=== PATIENT | female | born 1935 | race Caucasian/White ===

== ENCOUNTER 2022-08-31 08:45 | Outpatient (CLI) | payer MEDICARE, SELFPAY ==
--- NOTE | 2022-08-31 | EST_ITS ---
Patient Info Name: Stephanie Browning Age: 86 years : 1935 Gender: Female Ht: 65 in Wt: 175 lbs BSA: 1.93 m2 Exam Date: 08/31/2022 10:57 AM Exam Location: [facility] Stress Patient Status: Outpatient Admit Date: 08/31/2022 Staff Ordering Physician: Carson, Maggie Angulo MD Attending Provider: Carson, Maggie Angulo MD Exercise Technologist: Unique Garrison RDCS Exercise Physician: Lewis Waggoner DO Exam Type: CA stress mynor w NM Study Info Indications R06.09 - Other forms of dyspnea A regadenoson stress test was performed. Summary 1. 1. Negative lexiscan stress test for ischemic ST changes by ECG criteria. 2. 2. Stable hemodynamics throughout the test. 3. 3. Nuclear scan to follow and will be reported separately. Please correlate with it. 4. 4. Patient informed of the above results. Protocol: Lexiscan Stress ECG Details Stage: REST Duration (min): 0 min : 44 sec HR (bpm): 67 SBP (mmHg): 136 DBP (mmHg): 71 Stage: REST Duration (min): 10 min : 14 sec HR (bpm): 74 SBP (mmHg): 136 DBP (mmHg): 71 Stage: STAGE 1 Duration (min): 1 min : 0 sec HR (bpm): 72 SBP (mmHg): 134 DBP (mmHg): 77 Stage: RECOVERY Duration (min): 1 min : 0 sec HR (bpm): 93 SBP (mmHg): 134 DBP (mmHg): 77 Stage: RECOVERY Duration (min): 2 min : 0 sec HR (bpm): 94 SBP (mmHg): 140 DBP (mmHg): 74 Stage: RECOVERY Duration (min): 3 min : 0 sec HR (bpm): 90 SBP (mmHg): 140 DBP (mmHg): 70 Stage: RECOVERY Duration (min): 4 min : 0 sec HR (bpm): 88 SBP (mmHg): 140 DBP (mmHg): 70 Stage: RECOVERY Duration (min): 5 min : 0 sec HR (bpm): 88 SBP (mmHg): 142 DBP (mmHg): 69 Stage: RECOVERY Duration (min): 5 min : 5 sec HR (bpm): 88 SBP (mmHg): 142 DBP (mmHg): 69 Rest HR: 74 bpm Peak HR: 95 bpm Rest Sys BP: 136 mmHg Peak Sys BP: 142 mmHg Max Pred HR: 135 bpm % Max Pred HR: 70 % Target HR: 115 bpm Max RPP: 13,490 bpm*mmHg Termination Reason: Completed protocol Cardiac Symptoms: Shortness of breath Total Time: 1 min : 0 sec Rest Dinh BP: 71 mmHg Peak Dinh BP: 69 mmHg Total Dose: 0.4 mg Resting ECG Sinus rhythm. Stress ECG No ST changes. Arrhythmias None. Report Signatures
--- NOTE | 2022-08-31 | ECHO_ITS ---
Patient Info Name: Stephanie Browning Age: 86 years : 1935 Gender: Female Ht: 66 in Wt: 175 lbs BSA: 1.94 m2 HR: 78 bpm BP: 140 / 95 mmHg Technical Quality: Good Exam Date: 08/31/2022 9:37 AM Exam Location: [facility] Patient Status: Outpatient Admit Date: 08/31/2022 Staff Ordering Physician: Carson, Maggie Angulo MD Mechanical Drafter: Major Mason, RDCS, RT Attending Provider: Carson, Maggie Angulo MD Referring Physician: Carson LEACH; Exam Type: CA echo doppler color flow Study Info Indications R06.00 - Dyspnea, unspecified Complete two-dimensional, color flow and Doppler transthoracic echocardiogram is performed. Strain analysis performed. Summary 1. Complete two-dimensional, color flow and Doppler transthoracic echocardiogram is performed. 2. Left ventricular chamber dimension is normal. 3. Left ventricular systolic function is normal, estimated at 60-65%. 4. There is mildly increased left ventricular wall thickness. 5. The left ventricular diastolic function is grade I diastolic dysfunction. 6. E/e' 7 is not elevated. 7. Global longitudinal strain is normal at -17.8%. 8. There is mild aortic valve sclerosis. Left Ventricle E/e' 7 is not elevated. Global longitudinal strain is normal at -17.8%. Left ventricular chamber dimension is normal. Left ventricular systolic function is normal, estimated at 60-65%. There is mildly increased left ventricular wall thickness. The left ventricular diastolic function is grade I diastolic dysfunction. Right Ventricle Right ventricular systolic function is normal and with normal TAPSE 1.9 cm. Right ventricular chamber dimension is normal. Left Atria Left atrial chamber dimension is normal. Right Atria Right atrial chamber dimension is normal. Aortic Valve The aortic valve is trileaflet. There is mild aortic valve sclerosis. There is no aortic valve stenosis. There is no aortic valve regurgitation. Pulmonic Valve There is no pulmonic regurgitation. Mitral Valve There is no mitral valve stenosis. There is no mitral valve regurgitation. Tricuspid Valve There is no tricuspid valve regurgitation. Pericardium/Pleural There is no pericardial effusion. Inferior Vena Cava Normal inferior vena cava with >50% collapse upon inspiration consistent with normal right atrial pressure, 5 mmHg. Aorta The aortic root size at the sinus of Valsalva is normal. Left Ventricular Outflow Tract Name Value Normal LVOT 2D LVOT Diameter 2.0 cm LVOT Doppler LVOT Peak Gradient 3 mmHg LVOT Mean Gradient 1 mmHg LVOT VTI 17 cm LVOT VTI/AV VTI Ratio 0.9 LVOT Stroke Volume 54 ml LVOT CO 4.1 l/min LVOT CI 2.1 l/min/m2 Mitral Valve Name Value Normal
--- NOTE | ~2022-08-31 | NM_ITS ---
EXAMINATION: NM mynor stress w perfusion DATE: 08/31/2022 11:58 INDICATION: Dyspnea on exertion TECHNIQUE: Rest images were obtained following intravenous administration of 9.7 mCi Tc99m tetrofosmi n (Myoview). The patient was infused intravenously with Lexiscan (Regadenoson). Then, 30.5 mCi Tc99m tetrofosmin (Myoview) was administered intravenously, and stress images were obtained. Data was recon structed into short axis and horizontal and vertical long axis SPECT images. Gated SPECT images were also obtained. COMPARISON: None. FINDINGS: There is no definite reversible or fixed perfusion abnormality to suggest ischemia or infar ction. There is normal left ventricular chamber size, wall motion and ejection fraction. Left ventr icular ejection fraction measures >70%. IMPRESSION: 1. Normal myocardial perfusion at rest and during stress. 2. Left ventricular ejection fraction measuring >70%. Reviewed, dictated and finalized at location A.
== END 2022-08-31 08:46 | disposition home or self-care (01) ==
PROVIDERS: PCP Internal Medicine; Visit Provider Internal Medicine
DX: R06.09 Other forms of dyspnea (principal); I35.8 Other nonrheumatic aortic valve disorders
CPT/HCPCS: 78452; 93017; 93306; A9502; J2785